=== PATIENT | female | born 1950 | race Hispanic/Latino ===

== ENCOUNTER 2017-10-02 21:33 | Emergency (ER) | payer MEDICARE ==
[2017-10-03] MEDS ORDERED: NORCO 5/325 ONE (00:18)
[2017-10-03] MEDS ORDERED: XYLOCAINE 2% INFILTRATI ONE (00:39)
[2017-10-03] MEDS ORDERED: NORCO 5/325 PO ONE (00:44)
[2017-10-03] MEDS ORDERED: BOOSTRIX IM ONE ×2 (01:32→01:33)
--- NOTE | 2017-10-03 02:29 | Emergency Department Report ---
ED Laceration HPI - HPI Chief Complaint: Wound/Laceration Stated Complaint: RT PINKY INJURY Time Seen by Provider: 10/03/17 01:14 Occurred When: Today Location: Upper Extremity Severity: mild Tetanus Status: Not up to Date Laceration Symptoms: Yes Pain, No Foreign Body Sensation, No Numbness, No Weakness Other History: 67-year-old female presents to the emergency room for laceration to her right pinky status post cutting watermelon times today. Patient is unaware if she's had a tetanus shot in the last 5 years. Patient has no other concerns at this time. ED Review of Systems ROS: Stated complaint: RT PINKY INJURY Other details as noted in HPI Skin: other (cut on right pinky) ED Past Medical Hx - Past Medical History Hx Diabetes: Yes Hx COPD: Yes Additional medical history: hyperthyroidism - Surgical History Additional Surgical History: cataract, eye muscle x 3 years - Social History Smoking Status: Current Every Day Smoker Substance Use Type: None Laceration Physical Exam - Exam General: Vital signs noted. No distress. Alert and acting appropriately. Wound Length (cm): 1 (right pinky) Laceration Location: Upper Extremity Laceration Exam: Yes Normal Distal CMS, No Foreign Body, No Exposed Tendon, Vessel, or Nerve, No Tendon Injury ED Course Vital Signs 10/02/17 10/02/17 10/03/17 21:45 22:03 00:44 Temperature 98.1 F 98.1 F Pulse Rate 80 81 Respiratory 18 20 18 Rate Blood Pressure 123/59 123/59 O2 Sat by Pulse 93 94 Oximetry 10/03/17 01:42 Temperature Pulse Rate Respiratory 18 Rate Blood Pressure O2 Sat by Pulse Oximetry - Laceration /Wound Repair Right Finger Wound Location: upper extremity (right pinky) Wound Length (cm): 1 Wound's Depth, Shape: superficial, linear Wound Explored: clean Betadine Prep?: Yes Wound Repaired With: Dermabond Sterile Dressing Applied?: Yes Progress: Patient tolerated procedure well. ED Medical Decision Making - Medical Decision Making Patient has been evaluated by this provider fast track. Laceration repair with adhesive glue and pressure bandage. Splint was placed on the finger. Patient was given a tetanus vaccine. Advised patient to take Tylenol or Motrin for any pain. Critical care attestation.: If time is entered above; I have spent that time in minutes in the direct care of this critically ill patient, excluding procedure time. ED Disposition Clinical Impression: Laceration of finger Qualifiers: Encounter type: initial encounter Finger: little finger Damage to nail status: without damage Foreign body presence: without foreign body Laterality: right Qualified Code(s): S61.216A - Laceration without foreign body of right little finger without damage to nail, initial encounter Disposition: TO HOME OR SELFCARE Is pt being admited?: No Does the pt Need Aspirin: No Condition: Stable Instructions: Skin Adhesive Care (ED), Laceration (ED) Additional Instructions: Please keep wound clean and dry. Please return to the emergency room sooner if there is any signs of infection such as swelling redness or purulent discharge. Referrals: ADAMA REAVES MD [Primary Care Provider] - 3-5 Days
[2017-10-03 02:33] VITALS: BP 120/62
== END 2017-10-03 02:45 | disposition home or self-care (01) ==
LOC: ED 21:33
DX: S61.216A Laceration without foreign body of right little finger without damage to nail, initial encounter (principal); E11.9 Type 2 diabetes mellitus without complications; J44.9 Chronic obstructive pulmonary disease, unspecified; F17.200 Nicotine dependence, unspecified, uncomplicated; E05.90 Thyrotoxicosis, unspecified without thyrotoxic crisis or storm; W45.8XXA Other foreign body or object entering through skin, initial encounter; Y93.89 Activity, other specified; Y92.89 Other specified places as the place of occurrence of the external cause; Y99.8 Other external cause status
CPT/HCPCS: 90471; 90715; 99282

== ENCOUNTER 2018-09-09 16:27 | Emergency (ER) | payer MEDICARE ==
[2018-09-09] MEDS ORDERED: DUONEB *Not for PRN Use IH ONE ×2 (16:42→16:59)
[2018-09-09] MEDS ORDERED: SOLU-Medrol IM ONE ×2 (17:35→17:36)
--- NOTE | 2018-09-09 17:39 | Emergency Department Report ---
ED Shortness of Breath HPI - General Chief Complaint: Dyspnea/Respdistress Stated Complaint: HEAD PRESSURE/LOGAN/SOB Time Seen by Provider: 09/09/18 17:12 Source: patient Mode of arrival: Ambulatory Limitations: No Limitations - History of Present Illness Initial Comments: Patient is 68 years old female with history of COPD. Patient presented to the ER complaining of shortness of breath and cough, productive with greenish sputum for the last one week. Patient denied any fever or chills. No nausea or vomiting. Patient also denied any chest pain. MD Complaint: shortness of breath, cough - Related Data Allergies Allergy/AdvReac Type Severity Reaction Status Date / Time cephalexin [From Keflex] Allergy Anaphylaxis Verified 09/09/18 16:27 ED Review of Systems ROS: Stated complaint: HEAD PRESSURE/LOGAN/SOB Other details as noted in HPI Comment: All other systems reviewed and negative Constitutional: denies: chills, fever Respiratory: cough, shortness of breath, wheezing. denies: orthopnea, SOB with exertion, SOB at rest, stridor Cardiovascular: denies: chest pain, palpitations Gastrointestinal: denies: abdominal pain, nausea, vomiting, diarrhea, constipation, hematemesis, melena, hematochezia Genitourinary: denies: urgency, dysuria Musculoskeletal: denies: back pain Neurological: denies: headache, weakness, numbness, paresthesias, confusion ED Past Medical Hx - Past Medical History Hx Diabetes: Yes Hx COPD: Yes Additional medical history: hyperthyroidism - Surgical History Additional Surgical History: cataract, eye muscle x 3 years - Social History Smoking Status: Current Every Day Smoker Substance Use Type: None ED Physical Exam - General Limitations: No Limitations General appearance: alert, in no apparent distress - Head Head exam: Present: atraumatic, normocephalic, normal inspection - Eye Eye exam: Present: normal appearance, PERRL - ENT ENT exam: Present: normal exam, normal orophraynx, mucous membranes moist - Neck Neck exam: Present: normal inspection, full ROM. Absent: tenderness, meningismus, lymphadenopathy, thyromegaly - Respiratory Respiratory exam: Present: wheezes, rhonchi, prolonged expiratory. Absent: respiratory distress, rales, stridor, chest wall tenderness, accessory muscle use, decreased breath sounds - Cardiovascular Cardiovascular Exam: Present: regular rate, normal rhythm, normal heart sounds - GI/Abdominal GI/Abdominal exam: Present: soft, normal bowel sounds. Absent: distended, tenderness, guarding, rebound, rigid, organomegaly, mass, bruit, pulsatile mass, hernia - Extremities Exam Extremities exam: Present: normal inspection, full ROM, normal capillary refill. Absent: pedal edema, calf tenderness - Back Exam Back exam: Present: normal inspection, full ROM. Absent: tenderness, CVA tenderness (R), CVA tenderness (L), muscle spasm, paraspinal tenderness, vertebral tenderness, rash noted - Neurological Exam Neurological exam: Present: alert, oriented X3, CN II-XII intact, normal gait, reflexes normal - Skin Skin exam: Present: warm, intact, normal color ED Course Vital Signs 09/09/18 16:32 Temperature 98 F Pulse Rate 87 Respiratory 28 H Rate Blood Pressure 151/64 O2 Sat by Pulse 94 Oximetry ED Medical Decision Making - Medical Decision Making Patient is 68 years old female with history of COPD. Patient presented to the ER complaining of shortness of breath and cough, productive with greenish sputum for the last one week. Patient denied any fever or chills. No nausea or vomiting. Patient also denied any chest pain. Patient received albuterol, Atrovent, Solu-Medrol and Xopenex. Patient stated that she is feeling much better. Her chest x-ray is unremarkable. Patient advised to follow-up with her primary care physician in the next 2-3 days and to return to the ER if symptoms are not improved. Critical care attestation.: If time is entered above; I have spent that time in minutes in the direct care of this critically ill patient, excluding procedure time. ED Disposition Clinical Impression: COPD exacerbation, Acute bronchitis Disposition: - TO HOME OR SELFCARE Is pt being admited?: No Condition: Stable Instructions: Chronic Obstructive Pulmonary Disease (ED), Acute Bronchitis (ED) Referrals: PRIMARY CARE, [Referring] - 3-5 Days
[2018-09-09] MEDS ORDERED: PROVENTIL IH ONE (17:46)
[2018-09-09] MEDS ORDERED: TYLENOL PO ONE (17:46)
[2018-09-09 20:09] VITALS: BP 124/41
--- NOTE | 2018-09-09 21:17 | XRay Report ---
PROCEDURE: XR CHEST 1V AP TECHNIQUE: Chest radiograph single view. HISTORY: sob COMPARISONS: None . FINDINGS: Cardiac silhouette is not enlarged. Increased interstitial markings, likely chronic. Atelectatic changes and pleural parenchymal scarring in the lingula. No airspace consolidation or pleural effusions Pulmonary vasculature within normal limits. IMPRESSION: Increased interstitial markings, likely chronic. Atelectatic changes and pleural parenchymal scarring in the lingula. No other radiographic evidence of acute disease. This document is electronically signed by Anjel Lomas MD., September 09 2018 09:15:27 PM ET
== END 2018-09-09 19:20 | disposition home or self-care (01) ==
LOC: ED 16:27
DX: J44.1 Chronic obstructive pulmonary disease with (acute) exacerbation (principal); J20.9 Acute bronchitis, unspecified; E05.90 Thyrotoxicosis, unspecified without thyrotoxic crisis or storm; E11.9 Type 2 diabetes mellitus without complications; F17.200 Nicotine dependence, unspecified, uncomplicated; Z88.5 Allergy status to narcotic agent
CPT/HCPCS: 71045; 94640; 96372; 99284; J2930

== ENCOUNTER 2021-11-06 23:36 | Emergency (ER) | payer MEDICARE ==
[2021-11-06 23:49] VITALS: BP 153/66
[2021-11-06] MEDS ORDERED: SODIUM CHLORIDE 0.9% 500 ML 500 ML IV ONE (23:49)
[2021-11-06] MEDS ORDERED: ACETAMINOPHEN 500 MG TAB PO STA (23:49)
[2021-11-07 00:41] LABS: Basophils # (Auto) 0.1 K/mm3 (0.0-0.1); Basophils % (Auto) 1.3 % (0.0-1.8); Eosinophils # (Auto) 0.1 K/mm3 (0.0-0.4); Eosinophils % (Auto) 0.7 % (0.0-4.3); Hematocrit 40.4 % (30.3-42.9); Hemoglobin 13.4 gm/dl (10.1-14.3); Lymphocytes # (Auto) 1.8 K/mm3 (1.2-5.4); Lymphocytes % (Auto) 15.8 % (13.4-35.0); Mean Corpuscular HGB Conc 33 % (30-34); Mean Corpuscular Volume 86 fl (79-97); Monocytes # (Auto) 1.6 K/mm3 (0.0-0.8); Monocytes % (Auto) 14.1 % (0.0-7.3); Platelet Count 174 K/mm3 (140-440); Red Blood Count 4.71 M/mm3 (3.65-5.03); Red Cell Distribution Width 15.5 % (13.2-15.2)
--- NOTE | 2021-11-07 00:48 | XRay Report ---
CHEST 1 VIEW 11/07/2021 12:24 AM INDICATION / CLINICAL INFORMATION: possible Sepsis. COMPARISON: One view of the chest from 09/09/2018. FINDINGS: SUPPORT DEVICES: None. HEART / MEDIASTINUM: No significant abnormality. LUNGS / PLEURA: No significant pulmonary abnormality. No significant pleural effusion. No pneumothora x. ADDITIONAL FINDINGS: No significant additional findings. IMPRESSION: 1. No acute abnormality of the chest. Signer Name: Issa Albrecht MD Signed: 11/07/2021 12:43 AM Workstation Name: [id number]
[2021-11-07 00:55] LABS: INR 0.93 (0.87-1.13)
[2021-11-07 01:00] LABS: Alanine Aminotransferase 46 units/L (7-56); Albumin 3.8 g/dL (3.9-5); BUN/Creatinine Ratio 14; Blood Urea Nitrogen 13 mg/dL (7-17); Calcium 9.2 mg/dL (8.4-10.2); Hemolysis Index 9
[2021-11-07] MEDS ORDERED: ACETAMINOPHEN 500 MG TAB PO ONE (02:14)
[2021-11-07] MEDS ORDERED: SODIUM CHLORIDE 0.9% 1000 ML 1,000 ML IV ONE (02:14)
[2021-11-07] MEDS ORDERED: methylPREDNISolone Sod Succinate 125 MG/2 ML INJ IV ONE (02:28)
[2021-11-07] MEDS ORDERED: IPRATROPIUM/ALBUTEROL SULFATE 3 ML AMPUL.NEB IH ONE (02:28)
[2021-11-07] MEDS ORDERED: METOCLOPRAMIDE 10 MG/2 ML INJ IV ONE (02:29)
--- NOTE | 2021-11-07 02:37 | Emergency Department Report ---
HPI - General Chief Complaint: Dyspnea/Respdistress PUI?: Yes Time Seen by Provider: 11/07/21 02:13 - HPI HPI: 71-year-old morbidly obese female with history of COPD, currently on 2 L of oxygen via nasal cannula, presents for eval of by 1 to 2 weeks of fatigue, phlegm productive cough, shortness of breath, 1 week of headache. Patient states over a week ago she was seen at a local urgent care doctor and was told "I have a respiratory infection." She states that she was placed on a z pack and given a steroid shot. She states she is not feeling better. She reports having taken an at home COVID test approximately 1 week ago and she states it was negative for COVID. Patient reports she has a frontal headache which is thr obbing constant and nonradiating. She states she has not taken any medication for her headache. She denies acute or thunderclap onset headache, she denies that this is the worst headache of her life. No vision changes no difficulty talking walking or word finding ED Past Medical Hx - Past Medical History Hx Diabetes: Yes Hx COPD: Yes Additional medical history: hyperthyroidism - Surgical History Additional Surgical History: cataract, eye muscle x 3 years - Social History Smoking Status: Current Every Day Smoker Substance Use Type: None - Medications Home Medications: Home Medications Medication Instructions Recorded Confirmed Last Taken Type Prednisone [predniSONE 10 mg 10 mg PO .TAPER #1 tab.ds.pk 09/09/18 Unknown Rx (6-Day Pack, 21 Tabs)] levoFLOXacin [Levaquin TAB] 500 mg PO QDAY #7 tablet 09/09/18 Unknown Rx Acetaminophen 500 mg PO Q6H PRN 7 Days #30 cap 11/07/21 Unknown Rx predniSONE [Deltasone] 60 mg PO DAILY 5 Days #15 11/07/21 Unknown Rx ED Review of Systems ROS: Stated complaint: SOB Other details as noted in HPI Physical Exam - Physical Exam Vital Signs: Vital Signs 11/06/21 23:37 Temperature 102 F H Pulse Rate 104 H Respiratory 22 Rate Blood Pressure 153/66 [Left] O2 Sat by Pulse 96 Oximetry ED Course Vital Signs 11/06/21 23:37 Temperature 102 F H Pulse Rate 104 H Respiratory 22 Rate Blood Pressure 153/66 [Left] O2 Sat by Pulse 96 Oximetry - Reevaluation(s) Reevaluation #1: 11/07/21 04:20 Patient reassessed. She is comfortable and well-appearing. Respiratory rate manually checked by me at the patient's bedside and is 16 breaths/min. She is speaking in full sentences. She does not appear dyspneic or tachypneic or to be in any acute distress. Labs and diagnostic imaging were discussed with the patient. She states her headache has resolved. She has no active abdominal pain. Patient is requesting to be discharged to home ED Medical Decision Making - Lab Data Result diagrams: 11/07/21 00:08 11/07/21 00:08 - EKG Data -: EKG Interpreted by Me EKG shows normal: sinus rhythm Rate: normal - EKG Data When compared to previous EKG there are: no significant change - Radiology Data Radiology results: report reviewed - Medical Decision Making 71-year-old morbidly obese female presents for evaluation of acute on chronic cough, abdominal pain and headache. Patient febrile in triage and per documentation note she was given 1 g of acetaminophen by triage provider. But the patient's repeat temperature demonstrates that the patient is afebrile once brought back to the emergency department. Labs reviewed. Patient was given albuterol DuoNeb and Solu-Medrol as well as Reglan for her symptoms. She reports complete resolution of her headache and abdominal pain. CT head performed to rule out acute intracranial pathology and CT abdomen pelvis performed for the same reasons. Both per reading radiologist demonstrate no acute findings. Patient was reassessed multiple times. She appears well and repeatedly is requesting to be discharged home. Patient was advised to call her primary care doctor to schedule an immediate follow-up appointment for reassessment. Patient verbalized undergoing standing and going the plan of care. Patient discharged home per her request Critical Care Time: No Critical care attestation.: If time is entered above; I have spent that time in minutes in the direct care of this critically ill patient, excluding procedure time. ED Disposition Clinical Impression: Fever Disposition: 01 HOME / SELF CARE / HOMELESS Is pt being admited?: No Does the pt Need Aspirin: No Condition: Stable Additional Instructions: Please call your doctor today to schedule immediate follow-up appointment. This is very important. Ask your doctor to reperform a COVID swab on you. As an alternative you may recheck this yourself by going to a local pharmacy and schedule to have this done. Take acetaminophen as needed for any fever and or pains you may experience. Be sure to drink plenty of water to stay hydrated. Take prednisone 60 mg by mouth daily. Each tablet is 20 mg and you should take 3 of these daily for the next 5 days. This is very important. Use your inhaler, 2 puffs every 4 hours as needed for wheezing and/or cough. Serve your symptoms very carefully. Return to the nearest emergency department soon as possible if you develop severe or worsening shortness of breath, any fev er of 100.4 Fahrenheit or higher, vomiting, inability tolerate liquids or solids, or if any other new worrisome symptoms develop Prescriptions: Acetaminophen 500 mg PO Q6H PRN 7 Days #30 cap PRN Reason: Fever >101 predniSONE [Deltasone] 60 mg PO DAILY 5 Days #15 Referrals: PRIMARY CARE, [Primary Care Provider] - 3-5 Days Forms: Accompanied Note
[2021-11-07 03:28] LABS: Bilirubin,Urine Negative (Negative); Blood,Urine Negative (Negative); Color,Urine Colorless (Yellow); Protein,Urine <15 mg/dL mg/dL (Negative); Urobilinogen,Urine 0.2 mg/dL (<2.0)
[2021-11-07 03:30] LABS: Bacteria,Urine 1+ /HPF (Negative)
--- NOTE | 2021-11-07 03:49 | Cat Scan Report ---
CT HEAD WITHOUT CONTRAST INDICATION / CLINICAL INFORMATION: persistent diffuse headache, dizziness. TECHNIQUE: All CT scans at this location are performed using CT dose reduction for ALARA by means of automated exposure control. COMPARISON: None available. FINDINGS: BRAIN PARENCHYMA: No acute intracranial hemorrhage. No evidence of recent infarct. No mass effect or midline shift. VENTRICULAR SYSTEM/EXTRA-AXIAL SPACES: Ventricles are normal for age. No extra-axial fluid collection . ORBITS: Normal as visualized. SKELETAL SYSTEM/SOFT TISSUES: Normal bones and soft tissues. PARANASAL SINUSES/MASTOID AIR CELLS: No significant abnormality. ADDITIONAL FINDINGS: None. IMPRESSION: 1. No acute intracranial abnormality. Signer Name: Issa Albrecht MD Signed: 11/07/2021 3:45 AM Workstation Name: [id number]
--- NOTE | 2021-11-07 03:53 | Cat Scan Report ---
CT ABDOMEN AND PELVIS WITH CONTRAST INDICATION / CLINICAL INFORMATION: R sided mid abdominal pain, fever 102F. TECHNIQUE: Axial CT images were obtained through the abdomen and pelvis after 100 cc Omnipaque [address] scans at this location are performed using CT dose reduction for ALARA by means of automated exposure control. COMPARISON: None available. FINDINGS: LOWER CHEST: No significant abnormality. LIVER: Cirrhotic without other significant abnormalities. GALLBLADDER: No significant abnormality. BILE DUCTS: No significant abnormality. PANCREAS: There is mild atrophy without other significant abnormalities. SPLEEN: No significant abnormality. ADRENALS: No significant abnormality. RIGHT KIDNEY/URETER: No significant abnormality. LEFT KIDNEY/URETER: No significant abnormality. STOMACH/SMALL BOWEL: No significant abnormality. COLON: There is noninflamed mild sigmoid diverticulosis without other significant abnormalities. APPENDIX: Not seen. PERITONEUM: No free fluid. No free air. No fluid collection. LYMPH NODES: No significant adenopathy. VASCULATURE: No significant abnormality. URINARY BLADDER: No significant abnormality. REPRODUCTIVE ORGANS: No significant abnormality. ADDITIONAL FINDINGS: None. BONES: No acute findings. There is mild spondylosis. IMPRESSION: 1. No acute findings to explain the patient's complaints. 2. Additional findings as above. Signer Name: Issa Albrecht MD Signed: 11/07/2021 3:48 AM Workstation Name: [id number]
== END 2021-11-07 05:34 | disposition home or self-care (01) ==
LOC: ED 23:36
DX: R50.9 Fever, unspecified (principal); F17.200 Nicotine dependence, unspecified, uncomplicated; E11.9 Type 2 diabetes mellitus without complications
CPT/HCPCS: 36415; 70450; 71045; 74177; 80053; 81001; 82140; 82805; 83880; 85025; 85610; 87040; 87086; 94640; 96361; 96374; 99285; J2930; J7030; Q9967; 94644